=== PATIENT | male | born 1965 | race Caucasian/White ===

== ENCOUNTER 2023-05-09 07:06 | Day surgery (SDC) | payer OTHER ==
[2023-05-05 12:18] VITALS: BMI 30.2
[2023-05-09 09:03] VITALS: RESP 18; TEMP 97.1
[2023-05-09 09:31] VITALS: BP 110/64; PULSE 68
== END 2023-05-09 09:20 | disposition home or self-care (01) ==
LOC: FASU-ENDO 07:06
PROVIDERS: ATTEND Internal Medicine Gastroenterology
PROC: 0DJD8ZZ Inspection of Lower Intestinal Tract, Via Natural or Artificial Opening Endoscopic (ICD-10-PCS; principal; 2023-05-09 08:42)
DX: Z12.11 Encounter for screening for malignant neoplasm of colon (principal)